=== PATIENT | male | born 1975 ===

== ENCOUNTER 2017-04-19 23:17 | Emergency (ER) | payer MEDICAID ==
[2017-04-20 00:16] VITALS: RESP 19; TEMP 99.2; O2SAT 100
[2017-04-20 00:17] VITALS: BMI 27.8
--- NOTE | 2017-04-20 01:34 | ED PDOC ---
Arrival/HPI - General Historian: Patient - History of Present Illness Time/Duration: Prior to Arrival Severity Level: 9 <Dulce Man - Last Filed: 04/20/17 01:31> <Seamus Gage - Last Filed: 04/20/17 02:54> - General Chief Complaint: Lower Extremity Problem/Injury Time Seen by Provider: 04/20/17 00:29 - History of Present Illness Narrative History of Present Illness (Text): 04/20/17 01:31 41-year-old male presents today with left knee pain status post injury. 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 Patient denies hitting his head. Denies headaches dizziness or weakness. Patient states incident occurred prior to arrival. Patient states he' s been unable to ambulate on the left knee. Patient states he's noticed swelling to the knee. Patient denies numbness weakness or tingling in the extremity. No other complaints (Dulce Man) Past Medical History - Provider Review Nursing Documentation Reviewed: Yes - Travel History Have you recently traveled outside [place] w/in the past 3 mons?: No - Infectious Disease Hx of Infectious Diseases: None - Psychiatric Hx Substance Use: No - Anesthesia Hx Anesthesia: No <Dulce Man - Last Filed: 04/20/17 01:31> Family/Social History - Physician Review Nursing Documentation Reviewed: Yes Family/Social History: Unknown Family HX Smoking Status: Never Smoked Hx Alcohol Use: No Hx Substance Use: No <Dulce Man - Last Filed: 04/20/17 01:31> Allergies/Home Meds <Dulce Man - Last Filed: 04/20/17 01:31> <Seamus Gage - Last Filed: 04/20/17 02:54> Allergies/Adverse Reactions: Allergies shellfish derived Allergy (Verified 04/20/17 00:28) ITCHING shrimp Allergy (Verified 04/20/17 00:28) ITCHING Review of Systems - Review of Systems Constitutional: absent: Fatigue, Fevers Respiratory: absent: SOB, Cough Cardiovascular: absent: Chest Pain, Palpitations Gastrointestinal: absent: Abdominal Pain, Nausea, Vomiting Musculoskeletal: Arthralgias. absent: Back Pain, Neck Pain Skin: absent: Rash, Pruritis Neurological: absent: Headache, Dizziness Psychiatric: absent: Anxiety, Depression <Dulce Man - Last Filed: 04/20/17 01:31> Physical Exam Vital Signs Reviewed: Yes Temperature: Afebrile Blood Pressure: Hypertensive Pulse: Regular Respiratory Rate: Normal Appearance: Positive for: Well-Appearing, Non-Toxic, Comfortable Pain Distress: None Mental Status: Positive for: Alert and Oriented X 3 - Systems Exam Head: Present: Atraumatic Mouth: Present: Moist Mucous Membranes Respiratory/Chest: Present: Clear to Auscultation Cardiovascular: Present: Regular Rate and Rhythm Lower Extremity: Present: NORMAL PULSES, Normal ROM, Tenderness (left knee; + edema, no erythema; no warmth; full rom of knee, no calf tenderness. sensation and distal pulses intact. cap refill <2. ), Swelling, Neurovascularly Intact. No: CALF TENDERNESS, Erythema, Deformity, Capillary Refill < 2 s <Dulce Man - Last Filed: 04/20/17 01:31> Vital Signs Temp Pulse Resp BP Pulse Ox 04/20/17 00:15 99.2 F 89 19 151/88 H 100 Medical Decision Making <Dulce Man - Last Filed: 04/20/17 01:31> <Seamus Gage - Last Filed: 04/20/17 02:54> ED Course and Treatment: 04/20/17 02:23 Patient nontoxic well-appearing in no distress with stable vital signs X-rays of the knee: no fracture Toradol IM Patient placed in knee immobilizer. Crutches given for ambulation I discussed all results with patient advised to followup with the orthopedist for the next 2 days. Return if symptoms worsen persist or new symptoms develop i advised the patient that although the xrays show no fracture; there is still a possibility for ligamentous or tendon injury the patient must see the orthopedist for further evaluation. Patient verbalizes understanding of discharge instructions and need for immediate followup. all aspects of this case were discussed the attending of record. Impression: knee pain, knee effusion Motrin every 6 hours as needed for pain Rest, ice, compression, elevation Use crutches for ambulation Followup with the orthopedist within the next 2 days Followup with primary care physician within the next 2 days Return if symptoms worsen persist or if new symptoms develop (Dulce Man) - RAD Interpretation Radiology Orders: 04/20/17 00:29 KNEE WITH PATELLA LEFT 3 VIEW [RAD] Stat - Medication Orders Current Medication Orders: Discontinued Medications Ketorolac Tromethamine (Toradol) 60 mg IM STAT STA Stop: 04/20/17 00:30 Last Admin: 04/20/17 00:38 Dose: 60 mg MAR Pain Assessment Document 04/20/17 00:38 RD (Rec: 04/20/17 00:39 RD [id number]) Pain Reassessment Is this a pain reassessment? No Sleep Is patient sleeping during reassessment? 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 / has examined the patient and agrees with the treatment plan. <Seamus Gage - Last Filed: 04/20/17 02:54> Disposition/Present on Arrival - Present on Arrival Any Indicators Present on Arrival: No History of DVT/PE: No History of Uncontrolled Diabetes: No Urinary Catheter: No History of Decub. Ulcer: No History Surgical Site Infection Following: None - Disposition Have Diagnosis and Disposition been Completed?: Yes Disposition Time: 02:24 Patient Plan: Discharge <Dulce Man - Last Filed: 04/20/17 01:31> <Seamus Gage - Last Filed: 04/20/17 02:54> - Disposition Diagnosis: Knee pain, acute, Knee effusion Disposition: HOME/ ROUTINE Condition: GOOD Discharge Instructions (ExitCare): Knee Pain (DC) Additional Instructions: Motrin every 6 hours as needed for pain Rest, ice, compression, elevation Use crutches for ambulation Followup with the orthopedist within the next 2 days Followup with primary care physician within the next 2 days Return if symptoms worsen persist or if new symptoms develop Prescriptions: Ibuprofen [Motrin] 600 mg PO Q6H PRN #20 tab PRN Reason: pain/fever reduction Referrals: Aric Hutchison MD [Staff Provider] - Follow up with primary Janett Mcguire MD [Staff Provider] - Follow up with primary [facility] [place] [Outside] - Follow up with primary [facility] [place] [Outside] - Follow up with primary Forms: [employer] ([place]), WORK NOTE
[2017-04-20 03:33] VITALS: BP 147/82; PULSE 90
--- NOTE | 2017-04-20 09:14 | RAD ---
PROCEDURE: Left Knee Radiographs. HISTORY: Pain. COMPARISON: None. FINDINGS: BONES: Normal. No fracture. JOINTS: Normal. No osteoarthritis. JOINT EFFUSION: None. OTHER FINDINGS: None. IMPRESSION: Normal radiographs of the left knee.
== END 2017-04-20 03:10 | disposition home or self-care (01) ==
LOC: ED 23:17 → MERGE 23:17 → ED 04-20 03:10
DX: M25.562 Pain in left knee (principal); M25.462 Effusion, left knee
CPT/HCPCS: 73562; 96372; 99283; J1885